=== PATIENT | female | born 1940 | race Caucasian/White ===

== ENCOUNTER 2022-02-18 16:54 | Emergency (ER) | payer OTHER, MEDICARE ==
[~2022-02-18] VITALS: Ht 160 cm; Wt 64.4 kg
[~2022-02-18 16:54] MED LIST: ASPIRIN EC81 MG PO; CENTRUM SILVER1 EAC3 PO; CITRUCEL479 GM PO; FOLGARD TABLET1 EAC1 PO; HYDROCHLOROTH12.5 M1; HYDROCHLOROTH12.5 MG PO; LASIX20 MG PO; LIPITOR20 MG PO; LISINOPRIL5 MG PO; MELATONIN10 M2 PO; PROBIOTIC1 EAC3 PO; VITAMIN D-32000 UNI1 PO
--- NOTE | 2022-02-20 14:49 | EKG ---
[facility] [address] [facility] [place], [place] [address] [address] Atrial fibrillation Nonspecific ST abnormality Abnormal ECG No previous ECGs available Confirmed by JORGE RAMOS MD ([id number] on 02/20/2022 2:49:12 PM Electronically Signed By: JORGE RAMOS MD 02/20/22 1449 PATIENT NAME: KATHARINE URRUTIA VANGIE Electrocardiogram DATE OF : 40 PHYSICIAN: JORGE RAMOS MD REPORT #: [id number] REPORT IS CONFIDENTIAL AND NOT TO BE RELEASED WITHOUT AUTHORIZATION
== END 2022-02-18 19:10 | disposition home or self-care (01) ==
LOC: ED 16:54
DX: R55 Syncope and collapse (principal); S09.90XA Unspecified injury of head, initial encounter; W22.8XXA Striking against or struck by other objects, initial encounter; Z86.73 Personal history of transient ischemic attack (TIA), and cerebral infarction without residual deficits; Z87.891 Personal history of nicotine dependence; Z88.0 Allergy status to penicillin; Z91.018 Allergy to other foods; Z91.09 Other allergy status, other than to drugs and biological substances; Z79.899 Other long term (current) drug therapy; Z79.82 Long term (current) use of aspirin
CPT/HCPCS: 36415; 70450; 72125; 80048; 85025; 93005; 93010; 99284-25